=== PATIENT | female | born 1975 | race Caucasian/White ===

== ENCOUNTER 2017-08-02 19:20 | Emergency (ER) | payer OTHER ==
[~2017-08-02] VITALS: Ht 177.8 cm; Wt 63.5 kg
[2017-08-02 19:36] VITALS: Ht 177.8 cm; Wt 63.5 kg
[2017-08-02 21:12] VITALS: BP 107/68
== END 2017-08-02 21:12 | disposition home or self-care (01) ==
LOC: ED 19:20
DX: M62.011 Separation of muscle (nontraumatic), right shoulder (principal); Z88.0 Allergy status to penicillin

== ENCOUNTER 2018-10-28 03:51 | Emergency (ER) | payer OTHER ==
[~2018-10-28] VITALS: Ht 177.8 cm; Wt 60.8 kg
[2018-10-28 04:01] VITALS: BP 151/91; Ht 177.8 cm; Wt 60.8 kg
== END 2018-10-28 04:45 | disposition left against medical advice (07) ==
LOC: ED 03:51
DX: Z53.21 Procedure and treatment not carried out due to patient leaving prior to being seen by health care provider (principal)